=== PATIENT | female | born 1970 | race Caucasian/White ===

== ENCOUNTER 2023-05-06 15:55 | Emergency (ER) | payer OTHER ==
[~2023-05-06] VITALS: Ht 149.9 cm; Wt 128.8 kg
[2023-05-06 16:00] VITALS: BP 116/61; PULSE 111; RESP 20; TEMP 97.4; O2SAT 98
[2023-05-06 16:29] VITALS: O2SAT 98
[2023-05-06] MEDS ORDERED: ACYC400T14 PO ×2 (17:49→17:56)
[2023-05-06] MEDS ORDERED: PRED20TA5 PO ×2 (17:52→17:56)
[2023-05-06] MEDS ORDERED: CARB15DR89 LEFT EYE ×2 (17:52→17:56)
== END 2023-05-06 17:55 | disposition home or self-care (01) ==
LOC: MED 15:55
DX: G51.0 Bell's palsy (principal); I10 Essential (primary) hypertension; Z79.899 Other long term (current) drug therapy
CPT/HCPCS: 70450; 99284

== ENCOUNTER 2023-06-11 10:43 | Emergency (ER) | payer BC, OTHER ==
[~2023-06-11] VITALS: Ht 149.9 cm; Wt 124.3 kg
[~2023-06-11 10:43] MED LIST: ACYC400T14 PO; CARB15DR89 LEFT EYE; PRED20TA5 PO
[2023-06-11 10:53] VITALS: BP 159/90; PULSE 80; RESP 18; TEMP 98.3; O2SAT 97
[2023-06-11] MEDS: KETOROLAC 30 MG/ML VIAL IM ONE (12:06)
[2023-06-11] MEDS ORDERED: NAPR-54 PO (13:49)
== END 2023-06-11 13:55 | disposition home or self-care (01) ==
LOC: MED 10:43
DX: S39.012A Strain of muscle, fascia and tendon of lower back, initial encounter (principal); S50.01XA Contusion of right elbow, initial encounter; V49.88XA Car occupant (driver) (passenger) injured in other specified transport accidents, initial encounter; I10 Essential (primary) hypertension; Z79.899 Other long term (current) drug therapy; Y93.89 Activity, other specified; Y92.89 Other specified places as the place of occurrence of the external cause; Y99.8 Other external cause status
CPT/HCPCS: 73030; 73080; 73130; 96372; 99284; J1885